=== PATIENT | male | born 1985 | race Caucasian/White ===

== ENCOUNTER 2021-04-11 18:58 | Emergency (ER) | payer OTHER, SELFPAY ==
[2021-04-11 18:59] VITALS: BMI 28.2
[2021-04-11 19:15] VITALS: BP 159/103; PULSE 73; RESP 20; TEMP 36.9; O2SAT 99; BMI 26.9
--- NOTE | 2021-04-11 19:40 | HMH.EDUTC ---
[facility] [place] Clinical Impression: Dental abscess, Pain, dental, Jaw pain Disposition: Home, Self-Care Condition on Discharge: Good Instructions: DI for Tooth Abscess Additional Instructions: Drink plenty of fluids. Start the oral antibiotics tomorrow. Take the ibuprofen that we prescribed for pain. You have to see a dentist. If you have trouble finding one, please let me know and I will try to help. Follow up with your regular doctor. GO TO THE ER FOR ANY WORSENING SYMPTOMS Follow up with your pcp regarding your elevated blood pressure Prescriptions: Ibuprofen [Ibuprofen 800mg Tablet] 800 mg PO Q8HP PRN #30 tab PRN Reason: Moderate Pain Transmission Status: Received by [facility] Amoxicillin [Amoxicillin 500mg Tab] 500 mg PO TID 10 Days #30 tab Transmission Status: Received by [facility] Referrals: Provider,Referral, MD [Primary Care Provider] - Time of Disposition: 20:30 Medical Decision Making - Medical Records Medical records reviewed: No: I reviewed the patient's medical records. - Aren Inquiry Pt receiving controlled substance: No Vital Signs: 04/11/21 19:15 04/11/21 20:03 Temperature 98.4 F 98.4 F Temperature Source Oral Pulse Rate 73 Pulse Rate [Right Brachial] 73 Respiratory Rate 20 20 Blood Pressure 159/103 H Blood Pressure [Right Arm] 159/103 H Blood Pressure Mean [Right Arm] 121 Blood Pressure Source [Right Arm] Automatic Cuff Blood Pressure Position [Right Arm] Sitting 02 Sat by Pulse Oximetry 99 Oxygen Delivery Method Room Air Orders (Tests/Meds): ED MEDICATIONS Discontinued Medications Generic Name Dose Route Start Last Admin Trade Name Freq PRN Reason Stop Dose Admin Ceftriaxone Sodium 1 gm 04/11/21 19:52 04/11/21 20:00 Ceftriaxone 1gm Vial IM 04/11/21 19:53 1 gm ONCE ONE Administration Ketorolac Tromethamine 60 mg 04/11/21 19:52 04/11/21 20:00 Ketorolac 60mg/2ml Vial IM 04/11/21 19:53 60 mg ONCE ONE Administration Lidocaine HCl 0 ml 04/11/21 19:52 04/11/21 20:00 Lidocaine 1% 5ml Pf Vial IM 04/11/21 19:53 2 ml ONCE ONE Administration [facility] [place] - General Stated complaint: dental pain Time Seen by Provider: 04/11/21 19:40 Mode of Arrival: Ambulatory Source of Information: Patient Limitations: No Limitations Description of Symptoms (Recalled from Triage Doc. by RN): Patient states that he has a loose filling on the right side of his mouth which has been very painful. Tylenol isnt helping. States that he just moved to the area so he does not have insurance in [place] as of yet. HEENT Symptoms (Recalled from RN notes): Yes Resp Symptoms (Recalled from RN notes): No Skin Symptoms (Recalled from RN notes): No MS Symptoms (Recalled from RN notes): No Functional Status (Recalled from RN notes): WNL - Related Data Previous Rx's Medication Instructions Recorded Amoxicillin [Amoxicillin 500mg Tab] 500 mg PO TID 10 Days #30 tab 04/11/21 Ibuprofen [Ibuprofen 800mg 800 mg PO Q8HP PRN #30 tab 04/11/21 Tablet] Allergies Allergy/AdvReac Type Severity Reaction Status Date / Time No Known Allergies Allergy Verified 04/11/21 19:30 - Worker's Comp Is this a Worker's Comp case?: No [facility] History - Hepatitis A Screen Drug use history?: No High risk sexual behaviors?: No History of sexually transmitted infection?: No Currently employed?: No Childcare worker?: No Do you have indoor plumbing?: Yes Do you have electricity?: Yes Attestation statement:: This patient has been screened for Hepatitis A risk factors. I have reviewed the patient's past medical history: Yes ROS Obtained: Yes All systems reviewed & no additional complaints - Constitutional Constitutional: Denies chills, Denies fever(s) - Eyes Eyes: Denies eye discharge - ENT Ears, Nose, Mouth, and Throat: Reports as per HPI - Cardiovascular Cardiovascular: Denies chest pain -
[2021-04-11 20:03] VITALS: BP 159/103; PULSE 73; RESP 20; TEMP 36.9; O2SAT 99
== END 2021-04-11 20:34 | disposition home or self-care (01) ==
LOC: UTC 19:17
PROVIDERS: Emergency Provider Nurse Practitioner Family
DX: K04.7 Periapical abscess without sinus (principal)
CPT/HCPCS: 96372; 99202; G0463

== ENCOUNTER 2021-05-19 14:09 | Emergency (ER) | payer OTHER, SELFPAY ==
[2021-05-19 14:09] VITALS: BP 140/90; PULSE 75; RESP 20; TEMP 36.8; O2SAT 97; BMI 26.9
--- NOTE | 2021-05-19 14:43 | XR_ITS ---
PROCEDURE INFORMATION: Exam: XR Chest Exam date and time: 05/19/2021 2:43 PM Age: 35 years old Clinical indication: Shortness of breath; Additional info: SOA TECHNIQUE: Imaging protocol: XR of the chest. Views: 2 views. COMPARISON: No relevant prior studies available. FINDINGS: Lungs: Patchy bilateral central and lower pulmonary airspace disease. Mild hypoventilation/low lung volumes. Pleural spaces: Unremarkable. No significant pleural effusion. No pneumothorax. Heart/Mediastinum: The cardiac silhouette is normal. Bones/joints: There is no evidence of acute fracture. IMPRESSION: Patchy bilateral central and lower pulmonary airspace disease, correlate for pneumonia or edema.
--- NOTE | 2021-05-19 15:01 | HMH.EDGENADL ---
ED Disposition Clinical Impression: Community acquired bacterial pneumonia Disposition: Home, Self-Care Condition on Discharge: Good Additional Instructions: Please continue to monitor your condition closely. If your condition worsens or any other concerns arise, please return to the emergency department. Otherwise, please follow-up with your primary care physician in 1 week. Prescriptions: Amoxicillin [Amoxicillin 875MG Tab] 875 mg PO Q12H #14 tab [facility] Status[facility] Doxycycline Monohydrate 100 mg PO BID 7 Days #14 cap Transmission Status: [facility] Referrals: Provider,Referral, [Primary Care Provider] - - Critical Care Critical Care Time: No Attestation: On 05/19/21, the high probability of a clinically significant, sudden or life threatening deterioration of the following system(s) required my full and direct attention, intervention and personal management. The time I documented below is in addition to time spent performing reported procedures but includes the following listed in this critical care notation. Medical Decision Making - Medical Records Medical records reviewed: Yes: I reviewed the patient's medical records. - Aren Inquiry Pt receiving controlled substance: No Vital Signs: 05/19/21 14:09 Temperature 98.3 F Temperature Source Oral Pulse Rate [Left Radial] 75 Respiratory Rate 20 Blood Pressure [Left Arm] 140/90 Blood Pressure Mean [Left Arm] 106 Blood Pressure Source [Left Arm] Automatic Cuff Blood Pressure Position [Left Arm] Sitting 02 Sat by Pulse Oximetry 97 Oxygen Delivery Method Room Air - Lab Data Lab results reviewed: Yes: I reviewed the patient's lab results. Lab Results 05/19/21 14:29: SARS-CoV-2 (PCR) Not detected, Influenza A Untype (PCR) Not detected, Influenza Type B (PCR) Not detected 05/19/21 15:05: WBC 11.4 H, RBC 5.06, Hgb 16.5, Hct 50.1, MCV 99.0 H, MCH 32.6 H, MCHC 32.9, RDW 13.7, Plt Count 212, MPV 8.3, Neut % (Auto) 62.7, Lymph % (Auto) 29.8, [place] % (Auto) 4.1, Eos % (Auto) 2.1, Baso % (Auto) 1.4, Neut # (Auto) 7.2, Lymph # (Auto) 3.4, Teton # (Auto) 0.5, Eos # (Auto) 0.2, Baso # (Auto) 0.2 05/19/21 15:05: Sodium 138, Potassium 4.2, Chloride 102, Carbon Dioxide 31 H, Anion Gap 9.2, BUN 10, Creatinine 0.90, Estimated Creat Clear 157, Estimated GFR 97, Est GFR ( Amer) 118, Glucose 95, Calcium 10.0, Total Bilirubin 1.2, AST 56, ALT 103 H, Alkaline Phosphatase 49, Troponin I < 0.01, Total Protein 7.2, Albumin 4.2, Globulin 3.0, Albumin/Globulin Ratio 1.4 05/19/21 15:05: D-Dimer 0.49 05/19/21 15:05: NT-Pro-B Natriuret Pep 60.5 Result diagrams: 05/19/21 15:05 05/19/21 15:05 Orders (Tests/Meds): ED MEDICATIONS Discontinued Medications Generic Name Dose Route Start Last Admin Trade Name Freq PRN Reason Stop Dose Admin Albuterol/Ipratropium 3 ml 05/19/21 15:06 Ipratropium/Albuterol 3 Ml Neb IH 05/19/21 15:07 ONCE ONE ORDERS Category Date Time Status Covid-19 Nasal PCR ([facility]) ONCE Lab 05/19/21 15:07 Ordered Troponin I Q3H Lab 05/19/21 18:00 Ordered Troponin I Q3H Lab 05/19/21 21:00 Ordered Blood Culture Stat Micro 05/19/21 15:48 Received - Radiology Data #1 CXR: FINDINGS: Lungs: Patchy bilateral central and lower pulmonary airspace disease. Mild hypoventilation/low lung volumes. Pleural spaces: Unremarkable. No significant pleural effusion. No pneumothorax. Heart/Mediastinum: The cardiac silhouette is normal. Bones/joints: There is no evidence of acute fracture. IMPRESSION: Patchy bilateral central and lower pulmonary airspace disease, correlate for pneumonia or edema. Medical Decision Narrative: Patient is a 35-year-old male with medical history of asthma and IV drug use presenting for chief complaint of dyspnea and fatigue. Differential diagnosis includes, but is not limited to, COVID-19, upper respiratory infection, pneumoni
[2021-05-19 15:12] LABS: Coronavirus 19, PCR Not Detected (NotDetected); Influenza A, PCR Not Detected (NotDetected); Influenza B, PCR Not Detected (NotDetected)
[2021-05-19 15:14] LABS: Basophils # 0.2 K/mm3 (0-0.2); Basophils % 1.4 % (0.1-2.0); Eosinophils # 0.2 K/mm3 (0.0-0.4); Eosinophils % 2.1 % (0.1-12.0); Hematocrit 50.1 % (42.0-52.0); Hemoglobin 16.5 g/dL (14.1-18.0); Lymphocytes # 3.4 K/mm3 (0.7-4.5); Lymphocytes % 29.8 % (10-50); Mean Corpuscular HGB Conc 32.9 g/dL (31.8-35.4); Mean Corpuscular Hemoglobin 32.6 pg (27.0-31.2); Mean Platelet Volume 8.3 fl (7.4-10.4); Monocytes # 0.5 K/mm3 (0.1-1.0); Monocytes % 4.1 % (1.7-9.3); Neutrophils # 7.2 K/mm3 (1.8-7.8); Neutrophils % 62.7 % (37.0-80.0); Platelet Count 212 K/mm3 (142-424); Red Blood Count 5.06 M/mm3 (4.60-6.20); Red Cell Distribution Width 13.7 % (11.5-17.5); White Blood Count 11.4 K/mm3 (4.8-10.8)
[2021-05-19 15:26] LABS: Alanine Aminotransferase 103 U/L (12-78); Albumin Level 4.2 g/dl (3.5-5.0); Albumin/Globulin Ratio 1.4 (1.1-1.8); Alkaline Phosphatase 49 U/L (38-126); Anion Gap 9.2 mEq/L (5-15); Aspartate Amino Transferase 56 U/L (17-59); Bilirubin,Total 1.2 mg/dl (0.2-1.3); Blood Urea Nitrogen 10 mg/dl (9-20); Carbon Dioxide 31 mmol/L (22.0-30.0); Chloride 102 mmol/L (98-107); Creatinine Clearance Estimated 157 mL/min (50-200); Estimated Glomerular Filt Rate 97 ml/min (>60); GFR (African American) 118 ML/MIN (>60); Glucose 95 mg/dl (74-100); Potassium 4.2 mmoL/L (3.5-5.1); Sodium 138 mmol/L (136-145); Total Protein,Serum 7.2 g/dl (6.3-8.2)
[2021-05-19 15:30] LABS: D-Dimer 0.49 ug/mL (0.0-0.5)
[2021-05-19 15:34] LABS: NT Pro Brain Natriuretic Pep. 60.5 pg/mL (0-125)
[2021-05-19 15:39] LABS: Troponin I < 0.01 ng/ml (0.00-0.034)
--- NOTE | 2021-05-19 15:49 | PC.NURSE ---
RT administering Duoneb at this time.
[2021-05-19 17:59] VITALS: BP 129/87; PULSE 89; RESP 18; TEMP 36.8; O2SAT 97
== END 2021-05-19 18:00 | disposition home or self-care (01) ==
PROVIDERS: Emergency Provider Emergency Medicine
DX: J18.9 Pneumonia, unspecified organism (principal); J45.909 Unspecified asthma, uncomplicated; Z20.822 Contact with and (suspected) exposure to COVID-19
CPT/HCPCS: 71046; 80053; 83880; 84484; 85025; 85378; 87040; 99283; C9803; U0003; U0005